=== PATIENT | male | born 1980 | race Caucasian/White ===

== ENCOUNTER 2022-10-16 22:52 | Emergency (ER) | payer MEDICAID, OTHER ==
[~2022-10-16] VITALS: Ht 172.7 cm; Wt 90.7 kg
[2022-10-16 23:07] VITALS: BP 151/91
--- NOTE | 2022-10-16 23:16 | NUR ---
TO LOBBY FOLLOWING TRIAGE AND SWABS OBTAINED
--- NOTE | 2022-10-17 02:05 | NUR ---
PT TO [facility] 11
--- NOTE | 2022-10-17 02:18 | NUR ---
Patient resting in bed, A/Ox4, chest and fall symmetrical, no s/s of distress, patient on monitor.
--- NOTE | 2022-10-17 02:24 | NUR ---
Patient being evaluated by physician at bedside.
[2022-10-17] MEDS ORDERED: KETOROLAC 30 MG/ML VIAL IM ONE (02:50)
[2022-10-17] MEDS ORDERED: ACETAMIN/CODEINE 120/12MG-5ML 5 ML UDC PO ONE (02:50)
--- NOTE | 2022-10-17 03:10 | NUR ---
Patient resting in bed, A/Ox4, chest and fall symmetrical, no s/s of distress, patient on monitor.
[2022-10-17] MEDS ORDERED: AMOX500C25 PO (03:47)
[2022-10-17] MEDS ORDERED: NAPR-54 PO (03:47)
[2022-10-17 03:59] VITALS: BP 126/84
--- NOTE | 2022-10-17 04:00 | NUR ---
Patient resting in bed, A/Ox4, chest and fall symmetrical, no c/o pain or s/s of distress, patient on monitor.
== END 2022-10-17 04:00 | disposition home or self-care (01) ==
LOC: MED 22:52
DX: J20.9 Acute bronchitis, unspecified (principal); Z20.822 Contact with and (suspected) exposure to COVID-19; H66.91 Otitis media, unspecified, right ear; I10 Essential (primary) hypertension; Z79.899 Other long term (current) drug therapy
CPT/HCPCS: 71045; 87426; 87804; 93005; 96372; 99285; J1885; Q0092